=== PATIENT | female | born 1980 | race Caucasian/White ===

== ENCOUNTER 2016-12-22 11:12 | Observation (INO) | payer BC ==
[~2016-12-22] VITALS: Ht 162.6 cm; Wt 98.0 kg
[~2016-12-22 11:12] MED LIST: METF500T PO
[2016-12-22] MEDS ORDERED: ESTA2TAB PEG (11:35)
[2016-12-22] MEDS ORDERED: TRAZ150T68 PO (11:35)
[2016-12-22] MEDS ORDERED: LISI-170 PO (11:35)
[2016-12-22 12:03] LABS: ASPARTATE AMINO TRANSFERASE 20 U/L (15-37); BLOOD UREA NITROGEN 8 mg/dL (7-18)
[2016-12-22 12:22] LABS: ACETAMINOPHEN < 2 mcg/mL (10-30)
[2016-12-22 13:04] LABS: DAU SCREEN DISCLAIMER
[2016-12-22] MEDS ORDERED: ACETAMINOPHEN 325 MG TABLET PO PRN (15:00)
[2016-12-22] MEDS ORDERED: ZIPRASIDONE 20 MG INJ IM PRN (15:00)
[2016-12-22] MEDS: CITALOPRAM 20 MG TABLET PO SCH (16:53)
[2016-12-22 20:07] VITALS: BP 110/75
[2016-12-22] MEDS ORDERED: TRAZODONE 50MG TABLET PO SCH (21:00)
[2016-12-23 07:32] VITALS: BP 130/86
[2016-12-23] MEDS: CITALOPRAM 20 MG TABLET PO SCH (07:38)
[2016-12-23] MEDS ORDERED: LISINOPRIL 20 MG TABLET PO SCH (09:00)
== END 2016-12-23 07:58 ==
LOC: ED 13:49 → EDIP 14:10 → UNDOADMIN 14:10 → EDIP 14:18 → INTOOBSV 14:18 → 3E 15:10
PROVIDERS: ADMIT Hospitalist; ATTEND Hospitalist
DX: R45.851 Suicidal ideations (principal); E11.9 Type 2 diabetes mellitus without complications; F32.9 Major depressive disorder, single episode, unspecified; I10 Essential (primary) hypertension; G47.00 Insomnia, unspecified; Z91.5 Personal history of self-harm
CPT/HCPCS: 36415; 80053; 80307; 80329; 84703; 85025; 99285; G0378; G0480